=== PATIENT | female | born 2000 | race Caucasian/White ===

== ENCOUNTER → 2018-05-13 | Outpatient (CLI) | payer OTHER ==
[2018-05-13 19:23] LABS: BASOPHILS ABSOLUTE AUTO 0.07 K/mm3 (0.00-0.23); BASOPHILS PERCENT AUTO 1 % (0-2); EOSINOPHILS ABSOLUTE AUTO 0.24 K/mm3 (0.00-0.68); EOSINOPHILS PERCENT AUTO 2 % (0-6); Hematocrit 42.2 % (33.0-51.0); Hemoglobin 14.6 g/dL (11.5-16.0); IMMATURE GRAN ABSOLUTE AUTO 0.07 K/mm3 (0.00-0.10); IMMATURE GRAN PERCENT AUTO 1 % (0-1); LYMPHOCYTES ABSOLUTE AUTO 2.68 K/mm3 (0.84-5.20); LYMPHOCYTES PERCENT AUTO 19 % (21-46); MONOCYTES ABSOLUTE AUTO 1.23 K/mm3 (0.16-1.47); MONOCYTES PERCENT AUTO 9 % (4-13); Mean Corpuscular HGB 30.4 pg (26.0-34.0); Mean Corpuscular HGB Conc 34.6 g/dL (31.5-36.5); Mean Corpuscular Volume 88 fL (80-100); Mean Platelet Volume 9.1 fL (9.1-12.4); NEUTROPHILS ABSOLUTE AUTO 9.76 K/mm3 (1.96-9.15); NEUTROPHILS PERCENT AUTO 69 % (41-73); Platelet Count 464 K/mm3 (150-400); RDW Standard Deviation 38.6 fL (35.1-46.3); Red Blood Cell Count 4.81 M/mm3 (3.80-5.20); White Blood Cell Count 14.05 K/mm3 (4.00-11.30)
[2018-05-13 19:40] LABS: Anion Gap 5 mmol/L (6-16); Blood Urea Nitrogen 8 mg/dL (8-21); Bun/Creatinine Ratio 9.8 (12.0-20.0); CO2, Blood 30 mmol/L (21-32); Calcium, Blood 9.4 mg/dL (8.5-10.1); Chloride, Blood 102 mmol/L (98-108); Creatinine, Blood 0.82 mg/dL (0.40-1.00); Glomerular Filtration Rate >60 (60-); Glucose, Blood 102 mg/dL (70-99); Potassium, Blood 3.9 mmol/L (3.5-5.5); Sodium, Blood 137 mmol/L (136-145); Thyroid Stimulating Hormone 2.024 uIU/mL (0.360-4.800)
== END | disposition home or self-care (01) ==
LOC: LAB EV 19:18 → LAB SHORT 19:18
PROVIDERS: Family Medicine
DX: M79.2 Neuralgia and neuritis, unspecified (principal)
CPT/HCPCS: 80048; 84443; 85025

== ENCOUNTER → 2018-11-13 | Outpatient (CLI) | payer OTHER ==
[~2018-11-13] MED LIST: LAMO25 PO; Monurol3 GM PO; Nadolol20 MG PO; PROM25; Zofran4 MG PO
== END ==
LOC: LAB EV 12:05 → LAB SHORT 12:05
DX: J02.9 Acute pharyngitis, unspecified (principal)
CPT/HCPCS: 87070

== ENCOUNTER 2019-01-03 18:31 | Emergency (ER) | payer OTHER ==
[~2019-01-03] VITALS: Ht 167.6 cm; Wt 88.5 kg
[2019-01-03 19:29] LABS: BASOPHILS ABSOLUTE AUTO 0.08 K/mm3 (0.00-0.23); BASOPHILS PERCENT AUTO 0 % (0-2); EOSINOPHILS ABSOLUTE AUTO 0.11 K/mm3 (0.00-0.68); EOSINOPHILS PERCENT AUTO 1 % (0-6); Hematocrit 36.9 % (33.0-51.0); Hemoglobin 12.3 g/dL (11.5-16.0); IMMATURE GRAN ABSOLUTE AUTO 0.16 K/mm3 (0.00-0.10); IMMATURE GRAN PERCENT AUTO 1 % (0-1); LYMPHOCYTES ABSOLUTE AUTO 3.67 K/mm3 (0.84-5.20); LYMPHOCYTES PERCENT AUTO 20 % (21-46); MONOCYTES ABSOLUTE AUTO 1.22 K/mm3 (0.16-1.47); MONOCYTES PERCENT AUTO 7 % (4-13); Mean Corpuscular HGB 31.1 pg (26.0-34.0); Mean Corpuscular HGB Conc 33.3 g/dL (31.5-36.5); Mean Corpuscular Volume 93 fL (80-100); Mean Platelet Volume 8.9 fL (9.1-12.4); NEUTROPHILS ABSOLUTE AUTO 12.76 K/mm3 (1.96-9.15); NEUTROPHILS PERCENT AUTO 71 % (41-73); Platelet Count 370 K/mm3 (150-400); RDW Coefficient Variation 13.2 % (11.7-14.2); RDW Standard Deviation 45.2 fL (35.1-46.3); Red Blood Cell Count 3.96 M/mm3 (3.80-5.20)
[2019-01-03 19:53] LABS: Alanine Aminotransfer (ALT/SGP 21 U/L (12-78); Albumin, Blood 3.3 g/dL (3.4-5.0); Albumin/Globulin Ratio 0.9 (0.8-1.8); Alk Phos 73 U/L (50-136); Anion Gap 10 mmol/L (6-16); Aspartate Aminotrans (AST/SGOT 12 U/L (12-37); Bilirubin, Total 0.3 mg/dL (0.1-1.0); Blood Urea Nitrogen 10 mg/dL (8-24); Bun/Creatinine Ratio 16.4 (12.0-20.0); CO2, Blood 21 mmol/L (21-32); Chloride, Blood 104 mmol/L (98-108); Creatinine, Blood 0.61 mg/dL (0.40-1.00); Globulin, Blood 3.7 g/dL (2.2-4.0); Glomerular Filtration Rate >60 (60-); Glucose, Blood 92 mg/dL (70-99); Potassium, Blood 3.7 mmol/L (3.5-5.5); Sodium, Blood 135 mmol/L (136-145)
[2019-01-03 20:03] LABS: Source, Urine Clean Catch
[2019-01-03] MEDS ORDERED: Verotin-Gr Cap1 EACH PO (20:07)
[2019-01-03 20:08] LABS: Blood, Urine 1+ (Neg); Glucose Qualitative, Urine Neg (Neg); Ketones, Urine 3+ (Neg); Leukocyte Esterase, Urine Neg (Neg); Nitrite, Urine Pos (Neg); Protein, Urine 2+ (Neg); Specific Gravity, Urine 1.025 (1.003-1.022); Urobilinogen, Urine 3+ (Normal)
[2019-01-03] MEDS ORDERED: MAGNESIUM100 MG (20:08)
[2019-01-03] MEDS ORDERED: B-12500 MCG (20:08)
[2019-01-03] MEDS ORDERED: CHOL10002 (20:08)
[2019-01-03] MEDS ORDERED: ERGO400 (20:09)
[2019-01-03 20:14] LABS: Appearance, Urine Hazy (Clear); Bilirubin, Urine 3+ (Neg); Color, Urine Orange (P-Yellow)
[2019-01-03 20:15] LABS: Bacteria Many /hpf; Red Blood Cells, Urine 0-2 /hpf (0-2); Squamous Epithelial Cells Mod /hpf (Few)
== END 2019-01-03 21:10 | disposition home or self-care (01) ==
LOC: ER 18:31
PROVIDERS: Emergency Medicine
DX: N39.0 Urinary tract infection, site not specified (principal); R11.10 Vomiting, unspecified; Z88.0 Allergy status to penicillin; Z88.8 Allergy status to other drugs, medicaments and biological substances; Z79.899 Other long term (current) drug therapy; Z87.891 Personal history of nicotine dependence
CPT/HCPCS: 36415; 80053; 81001; 85025; 87086; 99284

== ENCOUNTER 2019-01-03 21:25 | Observation (INO) | payer OTHER ==
[~2019-01-03] VITALS: Ht 167.6 cm; Wt 87.3 kg
[~2019-01-03 21:25] MED LIST changes: +B-12500 MCG; +CHOL10002; +ERGO400; +MAGNESIUM100 MG; +Verotin-Gr Cap1 EACH PO
--- NOTE | 2019-01-03 23:12 | NUR ---
2129- PT HERE FROM [facility] FOR [facility]. STATES THEY WERE GOING TO GIVE HER ROCEPHIN UP THERE BUT SHE IS "DEATHLY ALLERGIC" SO THEY DIDN'T GIVE HER ANYTHING. REPORTS THAT THEY GAVE HER SL ZOFRAN BUT SHE IS STILL NAUSEOUS. ALSO STATES THAT HER L LOWER ABD-L FLANK PAIN IS A /. 2199- CALL TO [facility]IL[facility] AFTER UNABLE TO REACH . NEW ORDERS GIVEN. 2209- ESPINOZA VO CALLED BACK TO D.C ANBX ORDER D/T PT'S ALLERGIES. STATES SHE WILL COME IN AND FIGURE OUT WHICH ANBX PT CAN HAVE. 2229- ESPINOZA VO IN HOUSE. CALL OUT TO PHARMACY TO ASSIST WITH ANBX CHOICE.
[2019-01-04 04:45] LABS: Gentamicin, Peak 4.7 ug/mL (4.0-8.0)
--- NOTE | 2019-01-04 13:01 | NUR ---
PT RESTING QUIETLY, DENIES PAINAT THIS TIME. PT STATES THAT PERCOCET IS CONTROLLING HER PAIN WELL. 1230: WONDERLY TO SEE PATIENT, NO NEW ORDERS. 1140: T DOPPLERED AT 148, WITH ACCEL TO 184 1041: DAMIR DORAN UPDATED, NO NEW ORDERS. 0930: ULTRASOUND CAME TO PERFORM RENAL ULTRASOUND. 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 JETS EASILY SEEN WORKING ON RIGHT SIDE, NO JETS SEEN WORKING ON LEFT SIDE. NO STONES SEEN IN KIDNEY.
--- NOTE | 2019-01-04 19:48 | NUR ---
PT RESTING QUIETLY. STATES PAIN IS TOLLERABLE AT THIS TIME. FHT DOPPLERED IN THE 150 RANGE. PT REPORTS BABY HAS BEEN ACTIVE T/O THE DAY.
--- NOTE | 2019-01-05 09:44 | NUR ---
ULTRASOUND BEING DONE NOW IN ROOM
--- NOTE | 2019-01-05 10:13 | NUR ---
ULTRASOUNDS TECH STATES SHE SEE SOME JET MOVING ON LEFT SIDE TODAY, REPORTS LEFT SIDE IS NOT MOVING MUCH THE RIGHT IS. FHT DOPPLERED BASE OF 145 WITH ACCEL HEARD TO 170
[2019-01-05 13:19] LABS: Hematocrit 33.2 % (33.0-51.0); Hemoglobin 11.1 g/dL (11.5-16.0); Mean Corpuscular HGB 30.9 pg (26.0-34.0); Mean Corpuscular HGB Conc 33.4 g/dL (31.5-36.5); Mean Corpuscular Volume 93 fL (80-100); Mean Platelet Volume 9.2 fL (9.1-12.4); Platelet Count 320 K/mm3 (150-400); RDW Coefficient Variation 13.2 % (11.7-14.2); RDW Standard Deviation 45.4 fL (35.1-46.3); Red Blood Cell Count 3.59 M/mm3 (3.80-5.20)
--- NOTE | 2019-01-05 17:27 | NUR ---
DISCHARGE PT LAUGHTING AND EATING DINNNER WITH FAMILY. STATES SHE IS FEELING SO MUCH BETTER. NO QUESTIONS OR CONCERNS. WILL RETURN TO DR OFFICE TOMORROW FOR SCHEDULED APPOINTMENT. DAMIR CALLING IN ANTIBIOTICS TO PHARMACY FOR PATIENT TO POST COMMANDER AT DISCHARGE. STABLE.
[2019-01-05] MEDS ORDERED: Percocet 5-3251 EACH PO (17:31)
== END 2019-01-05 18:00 | disposition home or self-care (01) ==
LOC: OBS 21:25 → BC 21:26 → OBS 21:59 → BC 22:00
PROVIDERS: Advanced Practice Midwife; ADMIT Nurse Practitioner Obstetrics & Gynecology
DX: O23.02 Infections of kidney in pregnancy, second trimester (principal); N13.6 Pyonephrosis; Z88.0 Allergy status to penicillin; Z88.1 Allergy status to other antibiotic agents; Z79.899 Other long term (current) drug therapy; Z3A.22 22 weeks gestation of pregnancy
CPT/HCPCS: 36415; 76770; 80170; 85027; 96361; 96365; 96366; 96375; G0378; J1580; J2405; J7120